=== PATIENT | male | born 1985 | race Two or more races ===

== ENCOUNTER 2023-09-05 04:18 | Day surgery (SDC) | payer BC ==
[2023-09-01 18:01] VITALS: BMI 38.7
[2023-09-05] MEDS ORDERED: BUPIVACAINE HCL/PF 0.25% (2.5MG/ML) 10 ML VIAL ONE (11:47)
[2023-09-05] MEDS ORDERED: FENTANYL CITRATE/PF 50 MCG/ML VIAL ONE ×5 (11:51→16:50)
[2023-09-05] MEDS ORDERED: PROPOFOL 40 ML ONE (11:51)
[2023-09-05] MEDS ORDERED: MIDAZOLAM HCL 2 MG/2 ML SINGLE DOSE VIAL ONE (11:51)
[2023-09-05] MEDS ORDERED: ROCURONIUM BROMIDE 50 MG/5 ML SYRINGE ONE ×2 (11:51→12:44)
[2023-09-05] MEDS ORDERED: LIDOCAINE HCL/PF 2% SDV 5ML VIAL ONE (11:51)
[2023-09-05] MEDS: ceFAZolin SODIUM 1 GM VIAL IVPB ONE (12:35)
[2023-09-05] MEDS ORDERED: DEXAMETHASONE SOD PHOSPHATE 4 MG/1 ML VIAL ONE (12:43)
[2023-09-05] MEDS: BUPIVACAINE HCL/PF 0.25% (2.5MG/ML) 10 ML VIAL IJ ONE (13:01)
[2023-09-05] MEDS ORDERED: ACETAMINOPHEN INJECTION 100 ML IVPB ONE (14:04)
[2023-09-05] MEDS ORDERED: PROPOFOL 20 ML ONE (14:07)
[2023-09-05] MEDS ORDERED: SUGAMMADEX SODIUM 200 MG/2 ML VIAL ONE (14:13)
[2023-09-05] MEDS ORDERED: ONDANSETRON 4 MG/2 ML VIAL ONE (14:13)
[2023-09-05] MEDS ORDERED: GLYCOPYRROLATE 0.2 MG/1 ML VIAL ONE ×2 (15:20→15:38)
[2023-09-05] MEDS ORDERED: NEOSTIGMINE METHYLSULFATE 0.5 MG/1 ML - 10 ML MDV ONE (15:20)
[2023-09-05] MEDS ORDERED: ONDANSETRON 4 MG/2 ML VIAL IVPUSH PRN (16:00)
[2023-09-05] MEDS ORDERED: ACETAMINOPHEN 1000 MG/100 ML BAG IVPB PRN (18:29)
[2023-09-05] MEDS: LACTATED RINGERS SOLUTION 1,000 ML IV SCH (18:30)
[2023-09-05] MEDS: oxyCODONE HCL 5 MG TABLET PO PRN (22:37)
[2023-09-06 03:50] LABS: ARTERIAL BLD GAS O2 SATURATION 96.1 % (95-98); ARTERIAL BLOOD GAS BASE EXCESS -2.2 mmol/L (-2-2); ARTERIAL BLOOD GAS PO2 84.3 mmHg (80-100); ARTERIAL BLOOD GAS pH 7.372 (7.350-7.450)
[2023-09-06 03:52] LABS: ALLENS TEST POSITIVE
[2023-09-06 07:14] LABS: HEMATOCRIT 44.2 % (35.4-49); HEMOGLOBIN 14.4 GM/dL (11.7-16.9); MCH 28.7 pg (25.7-33.7); MCHC 32.6 g/dl (32.0-35.9); MEAN CELL VOLUME 88.2 fl (80-96); MEAN PLT VOLUME 9.4 fl (7.5-11.1); PLATELET COUNT 242 10^3/uL (134-434); RBC 5.01 M/mm3 (4.00-5.60); WHITE BLOOD COUNT 14.9 K/mm3 (4.0-10.0)
[2023-09-06 07:39] LABS: POTASSIUM 4.1 mmol/L (3.5-5.1)
[2023-09-06 07:41] LABS: CALCIUM 8.9 mg/dL (8.5-10.1); MAGNESIUM 2.1 mg/dL (1.8-2.4)
[2023-09-06 07:42] LABS: BLOOD UREA NITROGEN 8.5 mg/dL (7-18)
[2023-09-06 07:45] LABS: CREATININE 0.6 mg/dL (0.55-1.3); PHOSPHOROUS 3.8 mg/dL (2.5-4.9)
[2023-09-06 09:58] LABS: URINE APPEARANCE CLEAR; URINE BILIRUBIN NEGATIVE (NEGATIVE); URINE COLOR YELLOW; URINE GLUCOSE (UA) NEGATIVE (NEGATIVE); URINE KETONE NEGATIVE (NEGATIVE); URINE LEUK ESTERASE NEGATIVE (NEGATIVE); URINE NITRITE NEGATIVE (NEGATIVE); URINE PROTEIN NEGATIVE (NEGATIVE); URINE UROBILINOGEN 0.2 mg/dL (0.2-1.0)
[2023-09-06] MEDS ORDERED: ENOXAPARIN NA (PORCINE) 40 MG/0.4 ML DISP.SYRIN SQ SCH (10:00)
[2023-09-06] MEDS ORDERED: ALBUTEROL SO4 2.5/IPRATROPIUM 0.5 INH SOL 3 ML VIAL.NEB. NEB PRN (10:12)
[2023-09-06 15:07] VITALS: BP 130/77; PULSE 97; RESP 19; TEMP 97.5
== END 2023-09-06 15:20 | disposition home or self-care (01) ==
LOC: JASU-SURG 04:18 → SUATTDRO 04:18 → JASUSAT 04:18 → J4S 19:03 → JASUSAT 09-06 15:20
PROVIDERS: ATTEND Internal Medicine
PROC: 0WUF4JZ Supplement Abdominal Wall with Synthetic Substitute, Percutaneous Endoscopic Approach (ICD-10-PCS; principal; 2023-09-05 10:30)
DX: K42.0 Umbilical hernia with obstruction, without gangrene (principal)
CPT/HCPCS: 49592; S2900; 36415; 36600; 71275-TC; 80048; 81003; 82803; 83036; 83735; 84100; 85027; 86850; 86900; 86901; 93005; 93010; 94010; 94760; C1781; J0131; Q9967